=== PATIENT | female | born 1965 | race Caucasian/White ===

== ENCOUNTER 2017-10-08 18:30 | Inpatient (IN) | payer OTHER ==
[~2017-10-08] VITALS: Ht 167.6 cm; Wt 76.7 kg
[2017-10-08 19:06] LABS: HEMATOCRIT 35.2 % (36.0-46.0); HEMOGLOBIN 10.2 G/DL (11.9-15.5); MCH 19.1 PG (29.0-34.0); PLATELET COUNT 438 K/uL (156-360); RBC DIS.WIDTH-CV 19.7 % (11.8-14.6); RBC DIS.WIDTH-SD 43.8 % (39-53); RED BLOOD COUNT 5.33 M/uL (3.80-5.20); WHITE BLOOD COUNT 8.5 K/uL (4.1-10.2)
[2017-10-08 19:07] LABS: CHLORIDE 102 mEq/L (99-109); POTASSIUM 3.2 mEq/L (3.7-5.4); SODIUM 138 mEq/L (136-147)
[2017-10-08 19:09] LABS: GLUCOSE 93 mg/dL (70-99)
[2017-10-08 19:12] LABS: SERUM ETHYL ALCOHOL < 10 mg/dL
[2017-10-08 19:13] LABS: CREATININE 0.8 mg/dL (0.6-1.3)
[2017-10-08 19:14] LABS: UREA NITROGEN (BUN) 8 mg/dL (9-23)
[2017-10-08 19:30] LABS: GFR ESTIMATE (CALCULATED) > 59 mL/min/
[2017-10-08 20:46] LABS: AMPHETAMINE PRESUMPTIVE POSITIVE (500 ng/mL); BARBITURATES NEGATIVE (200 ng/mL); BENZODIAZEPINES NEGATIVE (150 ng/mL); BUPRENORPHINE NEGATIVE (10 ng/mL); COCAINE NEGATIVE (150 ng/mL); METHADONE NEGATIVE (200 ng/mL); METHAMPHETAMINE PRESUMPTIVE POSITIVE (500 ng/mL); OPIATES (MORPHINE) NEGATIVE (100 ng/mL); OXYCODONE NEGATIVE (100 ng/mL); PHENCYCLIDINE NEGATIVE (25 ng/mL); PROPOXYPHENE NEGATIVE (300 ng/mL); THC CANNABINOIDS NEGATIVE (50 ng/mL); TRICYCLIC ANTIDEPRESSANTS NEGATIVE (300 ng/mL)
[2017-10-08] MEDS ORDERED: VENTOLIN HFA18 GM IH (22:00)
[2017-10-08] MEDS ORDERED: B-121000 MC2 PO (22:01)
[2017-10-08] MEDS ORDERED: PROVENTIL,2.5 MG/3 M IH (22:01)
[2017-10-08] MEDS ORDERED: TYLENOL EXTRA500 MG PO (22:02)
[2017-10-08] MEDS ORDERED: ONE DAILY1 EAC3 PO (22:02)
[2017-10-08] MEDS ORDERED: VITAMIN B-6100 MG PO (22:02)
[2017-10-08] MEDS ORDERED: VITAMIN D31000 UNI2 PO (22:02)
[2017-10-08] MEDS ORDERED: ADVIL200 MG PO (22:03)
[2017-10-08] MEDS ORDERED: ZYRTEC10 M3 PO (22:03)
[2017-10-08 22:13] VITALS: BP 119/76
[2017-10-09 15:40] VITALS: BP 112/64
[2017-10-10 07:45] VITALS: BP 117/60
[2017-10-10 16:12] VITALS: BP 138/62
[2017-10-11 08:01] VITALS: BP 141/84
[2017-10-11 15:51] VITALS: BP 134/74
[2017-10-12 08:00] VITALS: BP 140/89
[2017-10-12 15:49] VITALS: BP 171/86
[2017-10-12 17:58] VITALS: BP 165/75
[2017-10-13 07:36] VITALS: BP 121/58
[2017-10-13] MEDS ORDERED: MINIPRESS2 MG PO (09:55)
[2017-10-13] MEDS ORDERED: ZOLOFT100 MG PO (09:55)
[2017-10-13 15:51] VITALS: BP 138/75
== END 2017-10-14 07:25 | disposition home or self-care (01) | DRG 882 ==
LOC: EME 18:30 → EDOF 20:53 → 1WEST 20:53 → ENRESERV 21:22 → 1WEST 22:11
DX: F43.25 Adjustment disorder with mixed disturbance of emotions and conduct (principal); F43.23 Adjustment disorder with mixed anxiety and depressed mood; F17.200 Nicotine dependence, unspecified, uncomplicated; R45.851 Suicidal ideations; F15.90 Other stimulant use, unspecified, uncomplicated; F13.90 Sedative, hypnotic, or anxiolytic use, unspecified, uncomplicated; F12.90 Cannabis use, unspecified, uncomplicated; Z56.0 Unemployment, unspecified
CPT/HCPCS: 80048; 84999; 85027; 90839; 94640; 94640 76; 97150 GO; 97166 GO; 99202; 99281; 99285; G0480; Q0177